=== PATIENT | male | born 1950 | race Caucasian/White ===

== ENCOUNTER 2020-05-29 22:32 | Observation (INO) | payer MEDICARE, BC ==
[2020-05-29] MEDS ORDERED: Ketorolac Tromethamine 30 MG/ML VIAL ONE (22:57)
[2020-05-29] MEDS ORDERED: Ondansetron PF 4 MG/2 ML Vial ONE (22:57)
[2020-05-29] MEDS ORDERED: Morphine 4 MG/ML VIAL ONE (22:57)
[2020-05-29 23:13] LABS: #Basophils 0.1 10x3/uL (0.0-0.2); #Eosinphils 0.2 10x3/uL (0.0-0.5); #Monocytes 0.8 10x3/uL (0.0-1.1); #Neutrophils 4.3 10x3/uL (1.5-8.4); %Basophils 0.6 % (0.0-2.0); %Lymphocytes 33.2 % (18.0-47.0); %Neutrophils 52.7 % (40.0-75.0); Hemoglobin 15.8 g/dL (13.5-17.5); Mean Corpuscular HGB CONC 32.8 g/dL (32.0-36.0); Mean Corpuscular Hemoglobin 29.5 pg (27.0-33.0); Mean Corpuscular Volume 89.9 fl (81.2-95.1); Mean Platelet Volume 9.4 fl (7.4-10.4); Platelet Count 175 10x3/uL (150-450); RBC Distribution Width 13.8 % (11.5-14.5); Red Blood Cell (RBC) Count 5.35 10x6/uL (4.32-5.72); White Blood Cell (WBC) Count 8.1 10x3/uL (3.5-10.5)
[2020-05-29 23:31] LABS: ALT (SGPT) 52 U/L (8-55); AST (SGOT) 41 U/L (5-34); Albumin 4.7 g/dL (3.4-4.8); Alkaline Phosphatase 94 U/L (40-110); Anion Gap 21 mmol/L (10-20); BUN (Urea Nitrogen) 23 mg/dL (8.4-25.7); Bilirubin, Total 0.3 mg/dL (0.2-1.2); Calc. Creatinine Clearance 0 mL/min (70-130); Calcium 10.2 mg/dL (7.8-10.44); Carbon Dioxide 22 mmol/L (23-31); Chloride 102 mmol/L (98-107); Globulin 3.4 g/dL (2.4-3.5); Glucose 107 mg/dL (80-115); Potassium 4.3 mmol/L (3.5-5.1); Protein, Total 8.1 g/dL (5.8-8.1); Sodium 141 mmol/L (136-145)
[2020-05-29 23:42] LABS: Bilirubin Neg (Negative); Blood, Urine 250 (Negative); Clarity Slightly Cloudy (Clear); Glucose, Urine (Dipstick) Normal (Negative); Ketone, Urine 50 mg/dL (Negative); Leukocyte Negative (Negative); Nitrite Negative (Negative); Protein, Urine (Dipstick) 30 mg/dl (Neg-Trace); Specific Gravity, Urine 1.025 (1.002-1.036); Urobilinogen Normal mg/dL (Less than 2)
[2020-05-29 23:58] LABS: Bacteria/HPF None Seen HPF (None Seen); RBC/HPF Greater than 50 HPF (0-3); Squamous Epithelial None Seen HPF (0-3); WBC/HPF 0-3 HPF (0-3)
[2020-05-30] MEDS ORDERED: Morphine 4 MG/ML VIAL ONE
[2020-05-30 01:11] VITALS: BMI 42.0
[2020-05-30] MEDS ORDERED: Morphine 4 MG/ML VIAL SLOW IVP PRN (01:48)
[2020-05-30] MEDS ORDERED: Sodium Chloride 0.9% 1,000 ML IV SCH (02:00)
[2020-05-30 02:14] LABS: SARS-CoV-2 NAA Rapid Test Not Detected (NotDetected)
[2020-05-30] MEDS ORDERED: Ondansetron PF 4 MG/2 ML Vial IVP PRN (03:00)
[2020-05-30] MEDS ORDERED: HYDROmorphone 0.5 MG/0.5 ML SYRINGE SLOW IVP SCH (03:00)
[2020-05-30] MEDS ORDERED: Sodium Chloride 0.9% 500 ML IV SCH (03:00)
[2020-05-30] MEDS ORDERED: Senokot S 8.6-50 MG TAB PO PRN (03:00)
[2020-05-30] MEDS: Sodium Chloride 0.9% 1,000 ML IV SCH ×2 (03:30→16:21)
[2020-05-30] MEDS ORDERED: Albuterol Sulfate 2.5 mg/3 ml Neb NEB PRN (03:41)
[2020-05-30 05:12] LABS: #Eosinphils 0.1 10x3/uL (0.0-0.5); #Monocytes 0.8 10x3/uL (0.0-1.1); #Neutrophils 5.5 10x3/uL (1.5-8.4); %Basophils 0.4 % (0.0-2.0); %Eosinophils 1.8 % (0.0-6.0); %Lymphocytes 16.3 % (18.0-47.0); %Monocytes 10.4 % (0.0-10.0); %Neutrophils 70.6 % (40.0-75.0); Mean Corpuscular Hemoglobin 28.9 pg (27.0-33.0); Mean Corpuscular Volume 90.5 fl (81.2-95.1); Mean Platelet Volume 9.5 fl (7.4-10.4); Platelet Count 142 10x3/uL (150-450); RBC Distribution Width 13.6 % (11.5-14.5); Red Blood Cell (RBC) Count 4.84 10x6/uL (4.32-5.72); White Blood Cell (WBC) Count 7.8 10x3/uL (3.5-10.5)
[2020-05-30 05:34] LABS: Anion Gap 16 mmol/L (10-20)
[2020-05-30 05:35] LABS: BUN (Urea Nitrogen) 26 mg/dL (8.4-25.7); Calc. Creatinine Clearance 64 mL/min (70-130); Calcium 8.6 mg/dL (7.8-10.44); Carbon Dioxide 24 mmol/L (23-31); Chloride 106 mmol/L (98-107); Glucose 104 mg/dL (80-115); Magnesium 2.2 mg/dL (1.6-2.6); Potassium 4.5 mmol/L (3.5-5.1); Sodium 141 mmol/L (136-145)
[2020-05-30] MEDS: Nebivolol HCl 5 MG TAB PO SCH (07:36)
[2020-05-30] MEDS ORDERED: Budesonide/Glycopyr/Formoterol [Breztri Aerosphere Inhaler] INH SCH (09:00)
[2020-05-30] MEDS ORDERED: Morphine 2 MG/ML VIAL SLOW IVP SCH (09:15)
[2020-05-30] MEDS ORDERED: Levofloxacin 500 mg/D5W 100 ml Premix Bag ONE (10:25)
[2020-05-30] MEDS ORDERED: Ondansetron PF 4 MG/2 ML Vial ONE ×2 (10:27→12:17)
[2020-05-30] MEDS ORDERED: Dexamethasone 20 MG/5 ML VIAL ONE (10:27)
[2020-05-30] MEDS ORDERED: Fentanyl 100 MCG/2 ML VIAL ONE (10:27)
[2020-05-30] MEDS ORDERED: PROPOFOL 20 ML ONE (10:27)
[2020-05-30] MEDS ORDERED: Rocuronium Bromide 10 MG/ML (10ML VIAL) ONE (10:28)
[2020-05-30] MEDS ORDERED: Lidocaine 2% PF 5 ML VIAL ONE (10:28)
[2020-05-30] MEDS ORDERED: Iopamidol 0 ML FS ONE (10:37)
[2020-05-30] MEDS ORDERED: Iopamidol 30 ML ONE (10:38)
[2020-05-30] MEDS ORDERED: PHENYLEPHRINE-NS 100 MCG/ML 10 ML SYRINGE ONE (11:18)
[2020-05-30] MEDS ORDERED: Phenazopyridine HCl 97.5 MG TABLET PO PRN (11:51)
[2020-05-30] MEDS ORDERED: diphenhydrAMINE 50 MG/ML VIAL IVP PRN (11:51)
[2020-05-30] MEDS ORDERED: Acetaminophen 500 MG TAB PO PRN (11:51)
[2020-05-30] MEDS ORDERED: HYDROcodone/Acetaminophen 7.5/325 mg Tablet PO PRN ×2 (11:51)
[2020-05-30] MEDS ORDERED: Cyanocobalamin 1000 MCG/ML VIAL SC SCH (12:00)
[2020-05-30] MEDS ORDERED: Tamsulosin HCl 0.4 MG CAP PO SCH (12:30)
[2020-05-30] MEDS ORDERED: Guaifenesin DM 100-10/5 ML UDCUP PO PRN (14:21)
[2020-05-30] MEDS ORDERED: Furosemide 40 MG/4 ML VIAL SLOW IVP SCH (14:30)
[2020-05-30] MEDS: Tamsulosin HCl 0.4 MG CAP PO SCH (20:24)
[2020-05-30] MEDS: Famotidine/PF 20 mg/2ml Vial SLOW IVP SCH (20:24)
[2020-05-30] MEDS: Docusate 100 MG CAP PO SCH (20:24)
[2020-05-30] MEDS ORDERED: Enoxaparin Sodium 40 MG/0.4 ML SYRINGE SC SCH (21:00)
[2020-05-30] MEDS ORDERED: Atorvastatin Calcium 20 MG TAB PO SCH (21:00)
[2020-05-31] MEDS ORDERED: Levothyroxine Sodium 100 MCG TAB PO SCH (06:00)
[2020-05-31] MEDS: Nebivolol HCl 5 MG TAB PO SCH (06:02)
[2020-05-31 06:03] LABS: #Monocytes 0.8 10x3/uL (0.0-1.1); #Neutrophils 6.6 10x3/uL (1.5-8.4); %Basophils 0.1 % (0.0-2.0); %Eosinophils 0.1 % (0.0-6.0); %Lymphocytes 12.5 % (18.0-47.0); %Monocytes 9.1 % (0.0-10.0); %Neutrophils 77.6 % (40.0-75.0); Hemoglobin 13.9 g/dL (13.5-17.5); Mean Corpuscular HGB CONC 32.3 g/dL (32.0-36.0); Mean Corpuscular Hemoglobin 29.5 pg (27.0-33.0); Mean Corpuscular Volume 91.3 fl (81.2-95.1); Mean Platelet Volume 9.4 fl (7.4-10.4); Platelet Count 140 10x3/uL (150-450); RBC Distribution Width 13.4 % (11.5-14.5); Red Blood Cell (RBC) Count 4.71 10x6/uL (4.32-5.72); White Blood Cell (WBC) Count 8.5 10x3/uL (3.5-10.5)
[2020-05-31 06:15] LABS: Anion Gap 18 mmol/L (10-20); BUN (Urea Nitrogen) 15 mg/dL (8.4-25.7); Calc. Creatinine Clearance 121 mL/min (70-130); Calcium 8.7 mg/dL (7.8-10.44); Carbon Dioxide 24 mmol/L (23-31); Chloride 104 mmol/L (98-107); Glucose 114 mg/dL (80-115); Magnesium 2.4 mg/dL (1.6-2.6); Potassium 4.8 mmol/L (3.5-5.1); Sodium 141 mmol/L (136-145)
[2020-05-31 07:44] VITALS: BP 127/84; TEMP 97.1
[2020-05-31] MEDS ORDERED: Montelukast Sodium 10 mg Tablet PO SCH (09:00)
[2020-05-31] MEDS ORDERED: Tamsulosin HCl 0.4 MG CAP PO SCH (09:00)
[2020-05-31] MEDS ORDERED: VORTIOXETINE HYDROBROMIDE 20 MG PO SCH (09:00)
[2020-05-31] MEDS: Tamsulosin HCl 0.4 MG CAP PO SCH (09:55)
[2020-05-31] MEDS: Docusate 100 MG CAP PO SCH (09:55)
[2020-05-31] MEDS: Famotidine/PF 20 mg/2ml Vial SLOW IVP SCH (09:55)
== END 2020-05-31 11:20 | disposition home or self-care (01) ==
LOC: CSHERS 22:32 → CSHTELE 05-30 00:45
PROVIDERS: ADMIT Family Medicine; ATTEND Hospitalist
PROC: 0T768DZ Dilation of Right Ureter with Intraluminal Device, Via Natural or Artificial Opening Endoscopic (ICD-10-PCS; principal; 2020-05-30)
DX: N20.2 Calculus of kidney with calculus of ureter (principal); N40.1 Benign prostatic hyperplasia with lower urinary tract symptoms; Z79.899 Other long term (current) drug therapy; Z79.82 Long term (current) use of aspirin; E78.5 Hyperlipidemia, unspecified; E03.9 Hypothyroidism, unspecified; I25.2 Old myocardial infarction; G47.33 Obstructive sleep apnea (adult) (pediatric)
CPT/HCPCS: 51600; 52332; 71045; 74176; 74430; 80048 ×2; 80053; 83735 ×2; 83880; 85025 ×3; 87086; 93005; 94640; 94760; 96375; 96376 ×2; C2625; G0378 ×2; J2270; U0002; 36415; 81003; 81015; 93010; 96374; J1100; J1885; J1956; J2001; J2405; J2704; J3010; J7050; Q9966; Q9967; S0028

== ENCOUNTER 2020-06-30 11:17 | Outpatient (CLI) | payer MEDICARE, BC | END 2020-06-30 11:18 | disposition home or self-care (01) | LOC: CSHRAD 11:17 | PROVIDERS: ATTEND Urology | DX: N20.0 Calculus of kidney (principal); Z96.0 Presence of urogenital implants | CPT/HCPCS: 74018 ==

== ENCOUNTER 2021-07-26 08:22 | Outpatient (CLI) | payer MEDICARE, BC | END 2021-07-26 08:23 | disposition home or self-care (01) | LOC: CSHULT 08:22 | PROVIDERS: ATTEND Urology | DX: N20.0 Calculus of kidney (principal) | CPT/HCPCS: 74018; 76770 ==

== ENCOUNTER 2021-07-27 21:34 | Emergency (ER) | payer MEDICARE, BC ==
[2021-07-27 22:00] LABS: #Eosinphils 0.2 10x3/uL (0.0-0.5); #Monocytes 0.9 10x3/uL (0.0-1.1); %Basophils 0.5 % (0.0-2.0); %Eosinophils 2.3 % (0.0-6.0); %Lymphocytes 38.6 % (18.0-47.0); %Monocytes 10.9 % (0.0-10.0); %Neutrophils 47.2 % (40.0-75.0); Hemoglobin 14.5 g/dL (13.5-17.5); Mean Corpuscular HGB CONC 32.5 g/dL (32.0-36.0); Mean Corpuscular Hemoglobin 29.4 pg (27.0-33.0); Mean Corpuscular Volume 90.3 fl (81.2-95.1); Mean Platelet Volume 9.1 fl (7.4-10.4); Platelet Count 173 10x3/uL (150-450); RBC Distribution Width 14.3 % (11.5-14.5); Red Blood Cell (RBC) Count 4.94 10x6/uL (4.32-5.72); White Blood Cell (WBC) Count 8.4 10x3/uL (3.5-10.5)
[2021-07-27] MEDS ORDERED: Aspirin Chewable 81 MG TAB ONE (22:02)
[2021-07-27 22:11] LABS: INR-International Normal Ratio 0.9; PTT 24.7 sec (22.0-33.0); Prothrombin Time 9.8 sec (9.5-12.1)
[2021-07-27] MEDS ORDERED: Morphine 2 MG/ML VIAL ONE (22:12)
[2021-07-27] MEDS ORDERED: Ondansetron PF 4 MG/2 ML Vial ONE (22:14)
[2021-07-27 22:15] LABS: ALT (SGPT) 46 U/L (8-55); AST (SGOT) 30 U/L (5-34); Albumin 4.2 g/dL (3.4-4.8); Alkaline Phosphatase 70 U/L (40-110); Anion Gap 14 mmol/L (10-20); BUN (Urea Nitrogen) 20 mg/dL (8.4-25.7); Bilirubin, Total 0.4 mg/dL (0.2-1.2); Calc. Creatinine Clearance 0 mL/min (70-130); Calcium 9.4 mg/dL (7.8-10.44); Carbon Dioxide 26 mmol/L (23-31); Chloride 105 mmol/L (98-107); Globulin 2.8 g/dL (2.4-3.5); Glucose 133 mg/dL (80-115); Lipase 122 U/L (8-78); Potassium 4.3 mmol/L (3.5-5.1); Sodium 141 mmol/L (136-145)
[2021-07-27] MEDS ORDERED: Heparin 5,000 UNITS/ML VIAL ONE ×2 (22:23→22:25)
[2021-07-27 22:37] LABS: CKMB 7.1 ng/mL (0-6.6)
== END 2021-07-27 22:38 | disposition short-term general hospital (02) ==
LOC: CSHERS 21:34
DX: I21.3 ST elevation (STEMI) myocardial infarction of unspecified site (principal); E03.9 Hypothyroidism, unspecified; E78.00 Pure hypercholesterolemia, unspecified; Z87.891 Personal history of nicotine dependence
CPT/HCPCS: 71045; 80053; 82553; 83605; 83690; 83880; 84484; 85025; 85610; 85730; 93005; 94760; J1644; J2270; J2405

== ENCOUNTER 2022-04-24 00:53 | Observation (INO) | payer MEDICARE, BC ==
[2022-04-24 01:18] LABS: #Basophils 0.1 10x3/uL (0.0-0.2); #Eosinphils 0.5 10x3/uL (0.0-0.5); #Monocytes 0.9 10x3/uL (0.0-1.1); #Neutrophils 3.5 10x3/uL (1.5-8.4); %Basophils 0.7 % (0.0-2.0); %Eosinophils 6.3 % (0.0-6.0); %Lymphocytes 38.7 % (18.0-47.0); %Monocytes 11.3 % (0.0-10.0); %Neutrophils 42.5 % (40.0-75.0); Hemoglobin 14.3 g/dL (13.5-17.5); Mean Corpuscular HGB CONC 32.1 g/dL (32.0-36.0); Mean Corpuscular Hemoglobin 30.4 pg (27.0-33.0); Mean Corpuscular Volume 94.7 fl (81.2-95.1); Mean Platelet Volume 9.2 fl (7.4-10.4); Platelet Count 195 10x3/uL (150-450); RBC Distribution Width 13.2 % (11.5-14.5); White Blood Cell (WBC) Count 8.1 10x3/uL (3.5-10.5)
[2022-04-24 01:43] LABS: ALT (SGPT) 24 U/L (8-55); AST (SGOT) 21 U/L (5-34); Alkaline Phosphatase 93 U/L (40-110); Anion Gap 16 mmol/L (10-20); BUN (Urea Nitrogen) 15 mg/dL (8.4-25.7); Bilirubin, Total 0.3 mg/dL (0.2-1.2); Calc. Creatinine Clearance 0 mL/min (70-130); Carbon Dioxide 24 mmol/L (23-31); Chloride 104 mmol/L (98-107); Estimated GFR 75; Globulin 2.4 g/dL (2.4-3.5); Glucose 112 mg/dL (80-115); Potassium 3.9 mmol/L (3.5-5.1); Protein, Total 6.4 g/dL (5.8-8.1); Sodium 140 mmol/L (136-145)
[2022-04-24 02:05] LABS: CKMB 3.5 ng/mL (0-6.6)
[2022-04-24] MEDS ORDERED: Ondansetron PF 4 MG/2 ML Vial IVP PRN (02:21)
[2022-04-24] MEDS ORDERED: Zolpidem Tartrate 5 MG TAB PO PRN (02:21)
[2022-04-24] MEDS ORDERED: Guaifenesin DM 100-10/5 ML UDCUP PO PRN (02:21)
[2022-04-24] MEDS ORDERED: Calcium Carbonate 500 MG ChewTAB PO PRN (02:21)
[2022-04-24] MEDS ORDERED: Acetaminophen 325 MG TAB PO PRN (02:21)
[2022-04-24] MEDS ORDERED: HYDROcodone/Acetaminophen 5/325 mg Tablet PO PRN (02:21)
[2022-04-24] MEDS ORDERED: Senokot S 8.6-50 MG TAB PO PRN (02:21)
[2022-04-24] MEDS ORDERED: Nitroglycerin 0.4 MG TAB (25 Tab Bottle) SL PRN ×2 (02:28→11:40)
[2022-04-24] MEDS ORDERED: Ipratropium/Albuterol 3 ML NEB NEB PRN (02:28)
[2022-04-24] MEDS ORDERED: Nitroglycerin 2% Ointment 1 INCH/1 GM Packet TOP SCH (02:30)
[2022-04-24] MEDS ORDERED: Polyethylene Glycol 3350 17 GM Packet PO SCH (02:30)
[2022-04-24 04:08] VITALS: BMI 33.5
[2022-04-24] MEDS: Levothyroxine Sodium 100 MCG TAB PO SCH (05:41)
[2022-04-24 05:43] LABS: SARS-CoV-2 NAA Rapid Test Not Detected (NotDetected)
[2022-04-24 07:09] LABS: CKMB 5.3 ng/mL (0-6.6)
[2022-04-24] MEDS ORDERED: GLYCOPYR PO SCH (09:00)
[2022-04-24] MEDS ORDERED: Non-Formulary Medication 1 EACH (Glucosamine Hcl [Glucosamine Hcl] 1,500 MG Tablet) PO SCH (09:00)
[2022-04-24] MEDS ORDERED: Aspirin 325 MG TAB PO SCH (09:00)
[2022-04-24] MEDS ORDERED: VORTIOXETINE HYDROBROMIDE 20 MG PO SCH (09:00)
[2022-04-24] MEDS ORDERED: FORMOTEROL PO SCH (09:00)
[2022-04-24] MEDS ORDERED: BUDESONIDE PO SCH (09:00)
[2022-04-24] MEDS ORDERED: [UNRECOGNIZED DRUG - OTHER] PO SCH (09:00)
[2022-04-24] MEDS: Atorvastatin Calcium 20 MG TAB PO SCH (09:30)
[2022-04-24] MEDS: Allopurinol 300 MG TAB PO SCH (09:30)
[2022-04-24] MEDS: Nebivolol HCl 5 MG TAB PO SCH (09:30)
[2022-04-24] MEDS: Lisinopril 2.5 MG TAB PO SCH (09:31)
[2022-04-24] MEDS ORDERED: Lidocaine 1% (PF) 30 ML VIAL ONE (09:54)
[2022-04-24] MEDS ORDERED: Fentanyl 100 MCG/2 ML VIAL ONE (09:54)
[2022-04-24] MEDS ORDERED: Midazolam HCl 2 mg/2 ml Vial ONE (09:55)
[2022-04-24] MEDS ORDERED: Bivalirudin 250 MG VIAL ONE (09:59)
[2022-04-24] MEDS ORDERED: Atropine Sulfate 0.4 mg/1 ml Vial ONE (09:59)
[2022-04-24] MEDS ORDERED: TICAGRELOR 90 MG TABLET ONE (10:00)
[2022-04-24] MEDS ORDERED: Iopamidol 300 61% 100 ML VIAL FS ONE (10:30)
[2022-04-24] MEDS ORDERED: Acetaminophen/Codeine 30-300mg Tablet PO PRN ×2 (11:40)
[2022-04-24] MEDS ORDERED: Sodium Chloride 0.9% 200 ML IV PRN (11:40)
[2022-04-24] MEDS: Ipratropium/Albuterol 3 ML NEB NEB SCH ×2 (15:04→19:56)
[2022-04-24] MEDS: Mometasone 100 MCG/PUFF (1 INHALER) INH SCH (19:58)
[2022-04-24] MEDS ORDERED: Montelukast Sodium 10 mg Tablet PO SCH (21:00)
[2022-04-25] MEDS ORDERED: Morphine 4 MG/ML VIAL SLOW IVP SCH ×2 (00:45→02:00)
[2022-04-25] MEDS: Ipratropium/Albuterol 3 ML NEB NEB SCH ×3 (01:01→12:35)
[2022-04-25 02:26] LABS: #Basophils 0.1 10x3/uL (0.0-0.2); #Eosinphils 0.3 10x3/uL (0.0-0.5); #Monocytes 0.9 10x3/uL (0.0-1.1); #Neutrophils 5.9 10x3/uL (1.5-8.4); %Basophils 0.7 % (0.0-2.0); %Eosinophils 3.1 % (0.0-6.0); %Monocytes 9.7 % (0.0-10.0); %Neutrophils 64.1 % (40.0-75.0); Hemoglobin 15.1 g/dL (13.5-17.5); Mean Corpuscular Hemoglobin 30.3 pg (27.0-33.0); Mean Corpuscular Volume 94.6 fl (81.2-95.1); Mean Platelet Volume 9.2 fl (7.4-10.4); Platelet Count 197 10x3/uL (150-450); RBC Distribution Width 13.2 % (11.5-14.5); Red Blood Cell (RBC) Count 4.99 10x6/uL (4.32-5.72); White Blood Cell (WBC) Count 9.1 10x3/uL (3.5-10.5)
[2022-04-25 02:36] LABS: Troponin I 0.188 ng/mL (< 0.028)
[2022-04-25 02:49] LABS: Anion Gap 19 mmol/L (10-20); BUN (Urea Nitrogen) 9 mg/dL (8.4-25.7); Calc. Creatinine Clearance 118 mL/min (70-130); Calcium 9.9 mg/dL (7.8-10.44); Carbon Dioxide 24 mmol/L (23-31); Chloride 104 mmol/L (98-107); Estimated GFR 93; Glucose 111 mg/dL (80-115); Potassium 4.5 mmol/L (3.5-5.1); Sodium 142 mmol/L (136-145)
[2022-04-25] MEDS ORDERED: Ondansetron PF 4 MG/2 ML Vial IVP SCH (03:15)
[2022-04-25] MEDS: Levothyroxine Sodium 100 MCG TAB PO SCH (05:15)
[2022-04-25] MEDS: Mometasone 100 MCG/PUFF (1 INHALER) INH SCH (07:02)
[2022-04-25] MEDS: Allopurinol 300 MG TAB PO SCH (08:33)
[2022-04-25] MEDS: Nebivolol HCl 5 MG TAB PO SCH (08:33)
[2022-04-25] MEDS: Lisinopril 2.5 MG TAB PO SCH (08:33)
[2022-04-25] MEDS: Atorvastatin Calcium 20 MG TAB PO SCH (08:34)
[2022-04-25] MEDS ORDERED: Aspirin 81 mg Enteric Coated Tablet PO SCH (09:00)
[2022-04-25] MEDS ORDERED: Clopidogrel Bisulfate 75 MG TAB PO SCH (09:00)
[2022-04-25 12:03] VITALS: BP 100/61; TEMP 98.5
[2022-04-25] MEDS ORDERED: Polyethylene Glycol 3350 17 GM Packet PO SCH (14:15)
[2022-04-26] MEDS ORDERED: Polyethylene Glycol 3350 17 GM Packet PO SCH (09:00)
== END 2022-04-25 15:12 | disposition home or self-care (01) ==
LOC: CSHERS 00:53 → CSHTELE 02:25 → INTOOBSV 02:25
PROVIDERS: ADMIT Student in an Organized Health Care Education/Training Program; ATTEND Hospitalist
DX: I21.4 Non-ST elevation (NSTEMI) myocardial infarction (principal); I25.810 Atherosclerosis of coronary artery bypass graft(s) without angina pectoris; J84.10 Pulmonary fibrosis, unspecified; J84.9 Interstitial pulmonary disease, unspecified; G47.33 Obstructive sleep apnea (adult) (pediatric); I48.0 Paroxysmal atrial fibrillation; I12.9 Hypertensive chronic kidney disease with stage 1 through stage 4 chronic kidney disease, or unspecified chronic kidney disease; N18.2 Chronic kidney disease, stage 2 (mild); E11.22 Type 2 diabetes mellitus with diabetic chronic kidney disease; R06.02 Shortness of breath; Z20.822 Contact with and (suspected) exposure to COVID-19; E78.5 Hyperlipidemia, unspecified; E03.9 Hypothyroidism, unspecified; F32.A Depression, unspecified; J98.4 Other disorders of lung; I25.119 Atherosclerotic heart disease of native coronary artery with unspecified angina pectoris; E66.9 Obesity, unspecified; K21.9 Gastro-esophageal reflux disease without esophagitis; M10.9 Gout, unspecified; Z68.33 Body mass index [BMI] 33.0-33.9, adult; Z79.82 Long term (current) use of aspirin; Z79.899 Other long term (current) drug therapy; Z95.1 Presence of aortocoronary bypass graft; Z87.891 Personal history of nicotine dependence
CPT/HCPCS: 71045; 80048; 80053; 82553; 83880; 84484 ×3; 85025 ×2; 93005 ×2; 93306; 93455; 94640 ×4; 94760 ×2; 96372; 96374; 96375; 99285; C1760; C1769; C1887 ×2; G0378 ×2; U0002; 93010; 99152; 99153; J0461; J0583; J1650; J2001; J2250; J2270; J2405; J3010; J7620; Q9967

== ENCOUNTER 2024-01-09 21:18 | Emergency (ER) | payer MEDICARE | END 2024-01-10 00:31 | disposition home or self-care (01) | LOC: CSHERS 21:18 | DX: R07.9 Chest pain, unspecified (principal); I25.2 Old myocardial infarction ==

== ENCOUNTER 2024-02-28 08:03 | Outpatient (CLI) | payer MEDICARE | END 2024-02-28 08:04 | disposition home or self-care (01) | LOC: CSHULT 08:03 | PROVIDERS: ATTEND Urology | DX: R97.20 Elevated prostate specific antigen [PSA] (principal); N20.0 Calculus of kidney; N32.89 Other specified disorders of bladder | CPT/HCPCS: 72197; 74018; 76770 ==

== ENCOUNTER 2024-03-13 08:49 | Outpatient (CLI) | payer MEDICARE ==
[2024-03-13] MEDS ORDERED: Iopamidol 300 61% 100 ML VIAL FS ONE (13:29)
== END 2024-03-13 08:50 | disposition home or self-care (01) ==
LOC: CSHCT 08:49
PROVIDERS: ATTEND Family Medicine
DX: R10.9 Unspecified abdominal pain (principal); R19.5 Other fecal abnormalities; N20.0 Calculus of kidney
CPT/HCPCS: 74177; Q9967

== ENCOUNTER 2024-04-07 11:19 | Outpatient (CLI) | payer MEDICARE ==
[2024-04-07 12:17] LABS: Hematocrit 51.1 % (38.8-50.0); Mean Corpuscular HGB CONC 31.3 g/dL (32.0-36.0); Mean Corpuscular Hemoglobin 29.6 pg (27.0-33.0); Mean Corpuscular Volume 94.5 fL (81.2-95.1); Mean Platelet Volume 9.4 fL (7.4-10.4); Platelet Count 176 10x3/uL (150-450); RBC Distribution Width 13.3 % (11.5-14.5); Red Blood Cell (RBC) Count 5.41 10x6/uL (4.32-5.72); White Blood Cell (WBC) Count 10.52 10x3/uL (3.5-10.5)
[2024-04-07 12:51] LABS: Anion Gap 14 mmol/L (10-20); BUN (Urea Nitrogen) 20 mg/dL (8.4-25.7); Calc. Creatinine Clearance 0 mL/min (70-130); Calcium 9.3 mg/dL (7.8-10.44); Carbon Dioxide 24 mmol/L (23-31); Chloride 108 mmol/L (98-107); Estimated GFR 88; Glucose 85 mg/dL (83-110); Potassium 4.5 mmol/L (3.5-5.1); Sodium 141 mmol/L (136-145)
== END 2024-04-07 11:20 | disposition home or self-care (01) ==
LOC: CSHLAB 11:19
PROVIDERS: ATTEND Specialist
DX: Z01.818 Encounter for other preprocedural examination (principal); C00.9 Malignant neoplasm of lip, unspecified
CPT/HCPCS: 80048; 85027; 93005; 93010